=== PATIENT | female | born 1995 | race Caucasian/White ===

== ENCOUNTER 2017-08-04 16:38 | Day surgery (SDC) | payer BC ==
[2017-08-04] MEDS ORDERED: cefOXitin 1 GM in Premix Bag 1 BAG IV ONE (17:05)
--- NOTE | 2017-08-04 17:11 | PCM.HP ---
H&P History of Present Illness - General Date of Service: 08/04/17 Admit Problem/Dx: Admission Diagnosis/Problem Admission Diagnosis/Problem Appendicitis Source of Information: Patient History Limitations: Reports: No Limitations - History of Present Illness Initial Comments - Free Text/Narative: 21-year-old female with her usual state of excellent health until this morning when she felt ill. She noticed umbilical discomfort described as cramping which localized to the right lower quadrant throughout the day. This was associated with anorexia and nausea but no emesis. She also denied diarrhea. She presented to the [place] walk-in clinic. A white count was obtained and was slightly elevated. A CT scan of her abdomen was remarkable for imaging features consistent with acute appendicitis. Her last meal was around noon. I was asked to see her for surgical consultation. Right Abdominal Pain Score (Numeric/FACES): 6 - Related Data Allergies/Adverse Reactions: Allergies Allergy/AdvReac Type Severity Reaction Status Date / Time No Known Allergies Allergy Verified 08/04/17 16:55 Home Medications: Home Meds . [No Known Home Meds] 08/04/17 [History] H&P Review of Systems - Review of Systems: Review Of Systems: ROS reveals no pertinent complaints other than HPI. Exam - Exam Exam: See Below - Vital Signs Vital Signs: Last Vital Signs Temp 36.9 C 08/04/17 16:49 Pulse 118 H 08/04/17 16:49 Resp 18 08/04/17 16:49 BP 135/93 H 08/04/17 16:49 Pulse Ox 100 08/04/17 16:49 Weight: 50.349 kg - Exam General: Alert, Oriented, Cooperative Neck: Supple, Trachea Midline Lungs: Normal Respiratory Effort Cardiovascular: Regular Rate, Regular Rhythm GI/Abdominal Exam: No Distention, Other (Right lower quadrant abdominal discomfort to deep palpation) (Female) Exam: Deferred Rectal (Female) Exam: Deferred Extremities: Normal Inspection, Normal Range of Motion Skin: Warm, Dry, Intact Neuro Extensive - Mental Status: Alert, Oriented x3 Psychiatric: Alert, Normal Affect *Q Meaningful Use (ADM) - VTE *Q VTE Criteria *Q: - Stroke *Q Stroke Criteria *Q: - AMI *Q AMI Criteria *Q: - Problem List (1) Acute appendicitis SNOMED Code(s): 65524112 ICD Code: K35.80 - UNSPECIFIED ACUTE APPENDICITIS Status: Acute Priority : High Qualifiers: Acute appendicitis type: unspecified acute appendicitis type Qualified Code (s): K35.80 - Unspecified acute appendicitis Problem List Initiated/Reviewed/Updated: Yes Orders Last 24hrs: Active Orders 24 hr Category Date Time Status Admission Status [Patient Status] [ADT] Routine ADT 08/04/17 17:05 Active Patient to Empty Bladder [RC] ASDIRECTED Care 08/04/17 17:05 Ordered Verify Patient Consent Obtain [RC] ASDIRECTED Care 08/04/17 17:05 Ordered Nothing Per Oral Diet [DIET] Diet 08/04/17 Dinner Ordered Sodium Chloride 0.9% @ 125 MLS/HR (1000ml) Med 08/04/17 17:15 Ordered Sodium Chloride 0.9% [Normal Saline] 1,000 ml IV ASDIRECTED cefOXitin [Mefoxin in Dextrose,Iso-Osm 1 GM/50 ML] 1 gm Med 08/04/17 17:05 Ordered Premix Bag 1 bag IV ONETIME Schedule Procedure [COMM] Stat Oth 08/04/17 16:55 Ordered Resuscitation Status Routine Resus Stat 08/04/17 17:05 Ordered Assessment/Plan Comment:: imp: Acute appendicitis. I recommended laparoscopic appendectomy plan: Laparoscopic possible open appendectomy. I discussed the benefits and risk of the procedure as well as the alternatives with the patient. She wanted to proceed without reservation. The plan is to discharge her after the procedure. Mefoxin preoperatively.
[2017-08-04] MEDS ORDERED: Sodium Chloride 0.9% 1,000 ML IV SCH (17:15)
[2017-08-04] MEDS ORDERED: Propofol 200 MG/20 ML SDV ONE (17:32)
[2017-08-04] MEDS ORDERED: Midazolam 1 MG/ML 2 ML SDV ONE (17:33)
[2017-08-04] MEDS ORDERED: fentaNYL 250 MCG/5 ML SDV ONE (17:33)
[2017-08-04] MEDS ORDERED: Dexamethasone 4 MG/ML 5 ML MDV ONE (17:36)
[2017-08-04] MEDS ORDERED: Ondansetron 4 MG/2 ML SDV ONE (17:36)
[2017-08-04] MEDS ORDERED: Succinylcholine 200 MG/10 ML MDV ONE (17:36)
[2017-08-04] MEDS ORDERED: Rocuronium 50 MG/5 ML Vial ONE (17:36)
[2017-08-04] MEDS ORDERED: Lidocaine 1% 4 ML ONE (17:36)
[2017-08-04] MEDS: Bupivacaine 0.5%/EPINEPHrine 1:200,000 50 ML MDV ONE ×2 (17:38→17:46)
[2017-08-04] MEDS: Lidocaine 1% with EPINEPHrine 1:100,000 20 ML MDV ONE ×2 (17:38→17:46)
--- NOTE | 2017-08-04 18:02 | PCM.PREANE ---
Preanesthetic Assessment - Procedure Proposed Procedure: Laparoscopic appendectomy - Anesthesia/Transfusion/Family Hx Anesthesia History: No Prior Anesthesia Family History of Anesthesia Reaction: No Transfusion History: No Prior Transfusion(s) Intubation History: Unknown - Review of Systems General: No Symptoms Pulmonary: No Symptoms Cardiovascular: No Symptoms Gastrointestinal: No Symptoms Neurological: No Symptoms Other: Reports: None - Physical Assessment NPO Status Date: 08/04/17 NPO Status Time: 16:00 (contrast dye clear ) O2 Sat by Pulse Oximetry: 100 Respiratory Rate: 18 Vital Signs: Last Vital Signs Temp 36.9 C 08/04/17 16:49 Pulse 118 H 08/04/17 16:49 Resp 18 08/04/17 16:49 BP 135/93 H 08/04/17 16:49 Pulse Ox 100 08/04/17 16:49 Height: 1.7 m Weight: 50.349 kg ASA Class: 1E Mental Status: Alert & Oriented x3 Airway Class: Mallampati = 1 Dentition: Reports: Normal Dentition Thyro-Mental Finger Breadths: 3 Mouth Opening Finger Breadths: 3 ROM/Head Extension: Full Lungs: Clear to Auscultation, Normal Respiratory Effort Cardiovascular: Regular Rate, Regular Rhythm - Allergies Allergies/Adverse Reactions: Allergies Allergy/AdvReac Type Severity Reaction Status Date / Time No Known Allergies Allergy Verified 08/04/17 17:13 - Blood Blood Available: No Product(s) Available: None - Anesthesia Plan Pre-Op Medication Ordered: None - Acknowledgements Anesthesia Type Planned: General Anesthesia Pt an Appropriate Candidate for the Planned Anesthesia: Yes Alternatives and Risks of Anesthesia Discussed w Pt/Guardian: Yes Pt/Guardian Understands and Agrees with Anesthesia Plan: Yes PreAnesthesia Questionnaire - HOME MEDS Home Medications: Home Meds . [No Known Home Meds] 08/04/17 [History] - CURRENT (IN HOUSE) MEDS Current Meds: Current Medications Sodium Chloride (Normal Saline) 1,000 mls @ 125 mls/hr IV ASDIRECTED SARI Discontinued Medications Bupivacaine HCl/Epinephrine Bitart (Marcaine 0.5%/Epinephrine 1:200,000) Confirm Administered Dose 50 ml .ROUTE .STK-MED ONE Stop: 08/04/17 17:08 Last Admin: 08/04/17 17:46 Dose: 50 ml Dexamethasone (Dexamethasone) Confirm Administered Dose 20 mg .ROUTE .STK-MED ONE Stop: 08/04/17 17:37 Fentanyl (Sublimaze) Confirm Administered Dose 250 mcg .ROUTE .STK-MED ONE Stop: 08/04/17 17:34 Glycopyrrolate () Confirm Administered Dose 1 mg .ROUTE .STK-MED ONE Stop: 08/04/17 18:13 Cefoxitin Sodium 1 gm/ Premix 50 mls @ 100 mls/hr IV ONETIME ONE Stop: 08/04/17 17:34 Cefoxitin Sodium (Mefoxin In Dextrose,Iso-Osm 2 Gm/50 Ml) Confirm Administered Dose 50 mls @ as directed .ROUTE .STK-MED ONE Stop: 08/04/17 17:35 Lidocaine HCl (Xylocaine-Mpf 1%) Confirm Administered Dose 4 mls @ as directed .ROUTE .STK-MED ONE Stop: 08/04/17 17:37 Lidocaine/Epinephrine (Xylocaine 1% With Epinephrine 1:100,000) Confirm Administered Dose 20 ml .ROUTE .STK-MED ONE Stop: 08/04/17 17:08 Last Admin: 08/04/17 17:46 Dose: 20 ml Midazolam HCl (Versed 1 Mg/Ml) Confirm Administered Dose 2 mg .ROUTE .STK-MED ONE Stop: 08/04/17 17:34 Neostigmine Methylsulfate (Neostigmine) Confirm Administered Dose 5 mg .ROUTE .STK-MED ONE Stop: 08/04/17 18:13 Ondansetron HCl (Zofran) Confirm Administered Dose 4 mg .ROUTE .STK-MED ONE Stop: 08/04/17 17:37 Propofol (Diprivan 20 Ml) Confirm Administered Dose 600 mg .ROUTE .STK-MED ONE Stop: 08/04/17 17:33 Rocuronium Brantley (Zemuron) Confirm Administered Dose 50 mg .ROUTE .STK-MED ONE Stop: 08/04/17 17:37 Succinylcholine Chloride (Quelicin) Confirm Administered Dose 200 mg .ROUTE .STK -MED ONE Stop: 08/04/17 17:37
[2017-08-04] MEDS ORDERED: Ondansetron 4 MG/2 ML SDV IVPUSH PRN (18:05)
[2017-08-04] MEDS ORDERED: diphenhydrAMINE 50 MG/ML SDV IVPUSH PRN (18:05)
[2017-08-04] MEDS ORDERED: fentaNYL 100 MCG/2 ML SDV IVPUSH PRN (18:05)
[2017-08-04] MEDS ORDERED: HYDROmorphone 0.5 MG/0.5 ML Syringe IVPUSH PRN (18:05)
[2017-08-04] MEDS ORDERED: Meperidine PF 50 MG/ML Syringe IVPUSH PRN (18:05)
[2017-08-04] MEDS ORDERED: Neostigmine Methylsulfate 1 MG/ML 5 ML Syringe ONE (18:12)
--- NOTE | 2017-08-04 18:27 | PCM.OPNOTE ---
- General Post-Op/Procedure Note Date of Surgery/Procedure: 08/04/17 Operative Procedure(s): Laparoscopic appendectomy Findings: Acute appendicitis Pre Op Diagnosis: Acute appendicitis Post-Op Diagnosis: Acute suppurative appendicitis Anesthesia Technique: General ET Tube, Local Primary Surgeon: Abad Rodriguez Pathology: Appendix EBL in mLs: 2 Complications: None Condition: Good Free Text/Narrative:: After adequate general endotracheal tube anesthesia was obtained the patient's abdomen was prepped and draped for a laparoscopic appendectomy. A supraumbilical incision was made with a 15 blade after local analgesia was given at the midline. The linea alba was entered sharply followed by insertion of a 12 mm camera port. CO2 pneumoperitoneum was obtained. The bladder was distended. The appendix was thickened from induration and inflammation. There was no peritonitis. I made a window in the meso appendix and fired 2 loads across this structure. I then fired 2 loads across the base of the appendix. A small amount of mucus fell to right lower quadrant. I irrigated out this area with saline solution 1 L. I the omentum in the right lower quadrant. I decannulated the abdomen under direct vision and there was no bleeding from the port sites. The camera port site was closed with a cold Vicryl [id number]. The subcutaneous tissues and skin were closed with Vicryl as well. Steri-Strips and gauze were used for the dressing. Photographs were taken for the patient for the record.
--- NOTE | 2017-08-04 18:42 | PCM.POSTAN ---
POST ANESTHESIA ASSESSMENT - MENTAL STATUS Mental Status: Alert, Oriented - VITAL SIGNS Pulse Rate: 93 SaO2: 97 Resp Rate: 14 Blood Pressure: 128/63 Temperature: 37.1 C - RESPIRATORY Respiratory Status: Respiratory Rate WNL, Airway Patent, O2 Saturation Stable, Supplemental Oxygen - CARDIOVASCULAR CV Status: Pulse Rate WNL, Blood Pressure Stable - GASTROINTESTINAL GI Status: No Symptoms - PAIN Pain Score: 0 - POST OP HYDRATION Hydration Status: Adequate & Stable
[2017-08-04] MEDS ORDERED: Ketorolac 30 MG/ML SDV ONE (18:47)
== END 2017-08-04 19:40 | disposition home or self-care (01) ==
LOC: SUPCPDRO 16:38 → JD.ED 16:38 → JD.SDS 17:12
PROVIDERS: ATTEND Surgery
DX: K35.80 Unspecified acute appendicitis (principal); Z79.899 Other long term (current) drug therapy
CPT/HCPCS: 44970; 99284; J0330; J0694; J1100; J1885; J2250; J2405; J2710; J3010; 00840; J2704

== ENCOUNTER 2017-08-06 15:30 | Emergency (ER) | payer BC ==
[2017-08-06] MEDS ORDERED: Orphenadrine 100 MG Tab.ER PO STA (16:31)
[2017-08-06] MEDS ORDERED: Ondansetron 4 MG Tab.DIS PO ONE (16:31)
--- NOTE | 2017-08-06 16:31 | EDM.PDOC ---
ED HPI GENERAL MEDICAL PROBLEM - General Chief Complaint: Abdominal Pain Stated Complaint: RIGHT SIDE RIB AND SHOULDER PAIN Time Seen by Provider: 08/06/17 15:53 Source of Information: Reports: Patient, Old Records, RN Notes Reviewed, Significant Other (Fiance) History Limitations: Reports: No Limitations - History of Present Illness INITIAL COMMENTS - FREE TEXT/NARRATIVE: The patient underwent a laparoscopic appendectomy on 08/04/[address] Rodriguez. She was discharged home the following day, 08/05/2017 with prescriptions for Flagyl 500 mg po Q8 hrs, Bactrim DS, one tab po BID, and T3, 2 tabs po Q6hrs. she was to follow-up with Dr. Rodriguez on , 08/21/2017. She now presents with pain to her lower right ribs since yesterday, worse today. The pain is not pleuritic. No dyspnea. No palpitations. She had nausea today, but no vomiting or diarrhea. No recent fever. No recent urinary symptoms. No prior similar symptoms. The patient acknowledges that she has been constipated since 08/04/2017. The patient does not have a PCP. Right Upper Abdominal Pain Score (Numeric/FACES): 6 - Related Data Allergies Allergy/AdvReac Type Severity Reaction Status Date / Time No Known Allergies Allergy Verified 08/06/17 15:48 Home Meds: Home Meds Acetaminophen with Codeine [Tylenol with Codeine #3 Tablet] 1 each PO Q6H PRN [History] Ondansetron [Zofran ODT] 4 mg PO Q8H PRN #10 tab.dis 08/06/17 [Rx] Orphenadrine [Norflex] 1 tab PO Q12H #20 tab.er 08/06/17 [Rx] Sulfamethoxazole/Trimethoprim [Septra DS] 1 tab PO BID 08/06/17 [History] metroNIDAZOLE [Metronidazole] 500 mg PO Q8H 08/06/17 [History] Past Medical History - Past Surgical History GI Surgical History: Reports: Appendectomy (08/04/2017, per Dr. Rodriguez) Social & Family History - Tobacco Use Smoking Status *Q: Never Smoker - Alcohol Use Alcohol Use History: Yes Alcohol Use Frequency: Socially - Recreational Drug Use Recreational Drug Use: No - Living Situation & Occupation Living situation: Reports: Single, with Significant Other (Fiance) Occupation: Student ([employer]) ED ROS GENERAL - Review of Systems Review Of Systems: See Below Constitutional: Reports: No Symptoms HEENT: Reports: No Symptoms Respiratory: Reports: No Symptoms Cardiovascular: Reports: No Symptoms Endocrine: Reports: No Symptoms GI/Abdominal: Reports: No Symptoms : Reports: No Symptoms Musculoskeletal: Reports: No Symptoms Skin: Reports: No Symptoms Neurological: Reports: No Symptoms Psychiatric: Reports: No Symptoms Hematologic/Lymphatic: Reports: No Symptoms Immunologic: Reports: No Symptoms ED EXAM, GENERAL - Physical Exam Exam: See Below Exam Limited By: No Limitations General Appearance: Alert, WD/WN, No Apparent Distress Eye Exam: Bilateral Eye: Normal Inspection Ears: Normal External Exam, Hearing Grossly Normal Nose: Normal Inspection, No Blood Throat/Mouth: Normal Inspection, Normal Lips, Normal Voice, No Airway Compromise Head: Atraumatic, Normocephalic Neck: Normal Inspection, Full Range of Motion Respiratory/Chest: No Respiratory Distress, Lungs Clear, Normal Breath Sounds, No Accessory Muscle Use, Other (Reproducible tenderness to palpation of the lower right intercostal spaces). No: Crackles, Rhonchi, Wheezing, Pleural Rub Cardiovascular: Normal Peripheral Pulses, Regular Rate, Rhythm, No Gallop, No JVD, No Murmur, No Rub Peripheral Pulses: 4+: Radial (L), Radial (R) GI/Abdominal: Normal Bowel Sounds, Soft, No Organomegaly, No Distention, No Abnormal Bruit, No Mass, Other (Appropriate ander-incisional tenderness. The 3 laparoscopic wounds are dressed. The wounds appear to be clean, dry, and intact. ) (Female) Exam: Deferred Rectal (Female) Exam: Deferred Back Exam: Normal Inspection, Full Range of Motion, CVA Tenderness (R) (pain induced in the lower right ribs). No: CVA Tenderness (L) Extremities: Normal Inspection, Normal Range of Motion, No Pedal Edema, Normal Capillary Refill Neurological: Alert, Oriented, Normal Cognition, No Motor/Sensory Deficits Psychiatric: Normal Affect Skin Exam: Warm, Dry, Intact, Normal Color, No Rash Course - Vital Signs Last Recorded V/S: Last Vital Signs Temp 37.2 C 08/06/17 15:45 Pulse 93 08/06/17 16:40 Resp 16 08/06/17 16:40 BP 114/61 08/06/17 16:40 Pulse Ox 98 08/06/17 16:40 - Orders/Labs/Meds Meds: Medications Discontinued Medications Generic Name Dose Route Start Last Admin Trade Name Judi PRN Reason Stop Dose Admin Ondansetron HCl 4 mg 08/06/17 16:31 08/06/17 16:40 Zofran Odt PO 08/06/17 16:32 4 mg ONETIME ONE Administration Orphenadrine Citrate 100 mg 08/06/17 16:31 08/06/17 16:40 Norflex PO 08/06/17 16:32 100 mg ONETIME STA Administration - Re-Assessments/Exams Free Text/Narrative Re-Assessment/Exam: 08/06/17 16:23 Two-view chest radiograph reviewed. Cardiac silhouette is within normal limits. No pulmonary vascular congestion. No pleural effusions. No focal infiltrate. No pneumothorax. Small amount of bilateral subdiaphragmatic air. Formal read per the Radiologist pending. 08/06/17 16:24 The bilateral subdiaphragmatic air is residual from the laparoscopic appendectomy she underwent 2 days ago. As she is tender to palpation of the right intercostal muscles, her pain appears to be musculoskeletal in etiology. 08/06/17 16:[address] Rodriguez at 16:28. He agrees with my assessment. I will start the patient on Norflex and Zofran. He would like the patient to follow-up with him this coming 08/12/2017. Departure - Departure Time of Disposition: 16:57 Disposition: Home, Self-Care 01 Condition: Good Clinical Impression: Intercostal muscle pain - Discharge Information Prescriptions: Ondansetron [Zofran ODT] 4 mg PO Q8H PRN #10 tab.dis PRN Reason: Nausea/Vomiting Orphenadrine [Norflex] 1 tab PO Q12H #20 tab.er Instructions: Muscle Pain, Adult Referrals: Abad Rodriguez MD [Primary Care Provider] - Forms: ED Department Discharge Additional Instructions: You were seen in the emergency room for lower right rib pain. Workup in the ER included a chest x-ray, which showed a small amount of air under each of your hemidiaphragms, which is normal following laparoscopic abdominal surgery. Based on your physical examination, the cause of your pain is MOST LIKELY due to spasms of the muscles in between your ribs. We recommend you take deep breaths, even if this induces pain. You have been started on the muscle relaxant Norflex. Take one tablet every 12 hours, as prescribed. You have been started on the anti-nausea medicine Zofran. Dissolve 1 tablet on your tongue up to every 8 hours, as needed for nausea/vomiting. Stay well hydrated. Your case was discussed with Dr. Rodriguez. He would like you to follow-up with him this coming 08/12/2017. If any other problems, please do not hesitate to return to the ER.
--- NOTE | 2017-08-06 16:43 | CR ---
Chest: Two views of the chest were obtained. Comparison: No previous study. Free air identified beneath both hemidiaphragms. Heart size and mediastinum are normal. Lungs are clear. Scoliosis is present within the spine. Impression: 1. Free air beneath the hemidiaphragms. 2. Nothing acute is otherwise seen on two-view chest x-ray. Diagnostic code #3
== END 2017-08-06 17:20 | disposition home or self-care (01) ==
LOC: JD.ED 15:30
DX: R07.82 Intercostal pain (principal); Z90.49 Acquired absence of other specified parts of digestive tract; Z98.890 Other specified postprocedural states
CPT/HCPCS: 71020; 99284; A9270; 99283